=== PATIENT | female | born 2000 | race Caucasian/White ===

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

== ENCOUNTER 2018-01-01 09:32 | Emergency (ER) | payer SELFPAY ==
[2018-01-01 09:33] VITALS: BP 147/83; PULSE 81; RESP 16; TEMP 36.4; O2SAT 96; BMI 37.7
--- NOTE | 2018-01-01 10:14 | ED.VISSUMM ---
- ER Visit Summary Date of Service: 01/01/18 Chief Complaint: Cough History of Present Illness: The patient is a 17 F no senior past medical history. Status post tonsillectomy as a child. States that she has had a cough since yesterday. Green phlegm. No fever. No shortness of breath. At times she coughs or has she has vomited. No nausea no abdominal pain no diarrhea. Denies dysuria. Physical Examination: Well-appearing 88-year-old female vital signs are stable afebrile. Pulse ox 96% room air no signs of hypoxia. HEENT exam unremarkable. TMs normal. Posterior pharynx normal. Status post tonsillectomy. No redness. No exudate. No trouble swallowing or breathing. No drooling or stridor. Neck nontender no lymphadenopathy. No meningismus. Lungs clear to auscultation bilaterally. Heart regular rhythm no murmur. Abdomen soft nontender. Normal bowel sounds no peritoneal signs. Moving all 4 extremities. Neurovascularly intact. Calves nontender no edema no cords. Back exam normal. Neurologic exam normal. Test Results: None Emergency Department Course and Treatment: Patient clinically and historically has a viral URI needs no testing no antibiotics. Treatment Plan: [] Disposition: Discharge Impression: Acute viral URI This note was generated with [employer] dictation software. It may contain incorrect words, spelling, and punctuation that were not noted in review of the chart prior to signing ED Disposition - Plan for ED Patient: Chief Complaint: Cough Referrals: Kennedy Arriola DO [Primary Care Provider] -
--- NOTE | 2018-01-01 10:16 | ED.DEP ---
ED Disposition - Plan for ED Patient: Disposition: Home or Assisted Living Chief Complaint: Cough Instructions: ED URI Viral Referrals: Kennedy Arriola DO [Primary Care Provider] - 1 Week if not improving
== END 2018-01-01 10:37 | disposition home or self-care (01) ==
LOC: ED 10:25
PROVIDERS: Emergency Provider Emergency Medicine; Family Provider Family Medicine; PCP Family Medicine
DX: J06.9 Acute upper respiratory infection, unspecified (principal)
CPT/HCPCS: 99282

== ENCOUNTER 2018-03-07 07:17 | Emergency (ER) | payer SELFPAY ==
--- NOTE | 2018-03-07 07:17 | DT_ITS ---
This patient was seen during an EMR downtime March 03, 2018 - March 10, 2018. This patient may have a combination of paper and electronic documentation or all paper documentation. All documentation is viewable within the e-chart portion of [facility] for each patient visit.
[2018-03-10 15:54] LABS: Hematocrit 38.5 % (37-47); Hemoglobin 12.1 g/dl (12.0-15.0); Mean Corp Hgb Conc 31.4 g/gl (32-36); Mean Corpuscular Hgb 25.4 pg (27.0-32.0); Mean Corpuscular Volume 80.9 fL (81-99); Mean Platelet Vol. 10.6 fl (6.2-12.0); Platelet Count 337 K/mm3 (150-450); RBC Distribution Width CV 14.9 % (11.6-14.6); RBC Distribution Width SD 42.9 fl (35.1-43.9); Red Blood Count 4.76 M/mm3 (4.2-5.4); Scan Indicated on CBC? Y/N NO; White Blood Count 6.9 K/mm3 (4.4-11.0)
== END 2018-03-07 09:45 | disposition home or self-care (01) ==
LOC: ED 12:45
PROVIDERS: Emergency Provider Emergency Medicine; Family Provider Family Medicine; PCP Family Medicine
DX: R04.0 Epistaxis (principal); R42 Dizziness and giddiness; R03.0 Elevated blood-pressure reading, without diagnosis of hypertension
CPT/HCPCS: 85027; 96360; 96361; 99282

== ENCOUNTER 2018-06-12 16:14 | Emergency (ER) | payer OTHER, SELFPAY ==
[2018-06-12 16:14] VITALS: BP 154/80; PULSE 86; RESP 15; TEMP 36.8; O2SAT 96; BMI 36.2
--- NOTE | 2018-06-12 16:16 | RAD_ITS ---
STUDY: X-RAY - LEFT ANKLE REASON FOR EXAM: Female, 18 years old. Ankle pain. TECHNIQUE: 3 view(s) of the ankle. COMPARISON: None. FINDINGS: Normal visualized distal tibia and fibula. Normal medial and lateral malleoli. Normal tibiotalar articulation and ankle mortise. Normal visualized talus and calcaneus. The visualized subtalar, talonavicular, calcaneocuboid and tarsal articulations are normal. There is no demonstrated fracture. The soft tissue structures are unremarkable. RAD/Ankle min 3 Views IMPRESSION: Normal x-ray examination of the ankle. Electronically Signed: Mehdi Valle MD at 16:36 EDT , Service support ,
--- NOTE | 2018-06-12 16:43 | ED.DCSUM_ITS ---
- ER Visit Summary Date of Service: 06/12/18 Chief Complaint: Injury left ankle History of Present Illness: The patient is a 18 F who states her foot went into a hole. She presents with pain left ankle. She localizes pain laterally. She states when she was a child she tore ligaments in her ankle. She denies paresthesia, anesthesia or motor tics. She states she is able to walk. She has discomfort with walking. Physical Examination: Vital signs noted and blood pressure is elevated 154/80. There is pain palpation over the anterior talofibular ligament. There is minimal pain abrasion of the distal lateral malleolus and no pain the patient over the medial malleolus. There is no laxity with drawer testing. There is no pain the region of the base of the fifth metatarsal. DP and PT pulses are palpable. Test Results: Three-view x-ray was obtained and interpreted by me as negative for fracture, subluxation, dislocation or foreign body. Emergency Department Course and Treatment: X-ray was obtained per nursing protocol. Treatment Plan: Ice, rest and anti-inflammatories since no contraindication Disposition: Discharged home with appropriate home-going instructions Impression: Acute left ankle sprain anterior talofibular ligament This note was generated with [employer] dictation software. It may contain incorrect words, spelling, and punctuation that were not noted in review of the chart prior to signing ED Disposition - Plan for ED Patient: Disposition: Home or Assisted Living Chief Complaint: Lower Extremity Injury Instructions: ED Sprain Ankle W X Ray Referrals: Kennedy Arriola DO [Primary Care Provider] - 10-14 Days if not better Additional Instructions: Draw alphabet with your fourth 4-6 times a day. Take ibuprofen for pain.
[2018-06-12 16:48] VITALS: BP 119/79; PULSE 85; RESP 17; O2SAT 97
== END 2018-06-12 17:04 | disposition home or self-care (01) ==
LOC: ED 17:00
PROVIDERS: Emergency Provider Emergency Medicine
DX: S93.492A Sprain of other ligament of left ankle, initial encounter (principal); X58.XXXA Exposure to other specified factors, initial encounter; Y93.9 Activity, unspecified; Y92.89 Other specified places as the place of occurrence of the external cause; Y99.8 Other external cause status
CPT/HCPCS: 73610; 99282

== ENCOUNTER 2018-11-23 00:07 | Emergency (ER) | payer OTHER, SELFPAY ==
[2018-11-23 00:09] VITALS: BP 138/82; PULSE 74; RESP 16; TEMP 36.6; O2SAT 99; BMI 40.6
--- NOTE | 2018-11-23 00:46 | ED.VISSUMM ---
- ER Visit Summary Date of Service: 11/23/18 Chief Complaint: Nosebleed History of Present Illness: The patient is a 18 F who presents with a nosebleed. It has been occurring intermittently over the last 7 hours. It has all been right-sided. She does have a history of prior nosebleeds but is never needed a packing or cautery. Physical Examination: Afebrile vitals normal The patient has mild right-sided epistaxis she has some oozing from the anterior nasal septum Heart regular rate and rhythm Lungs clear Test Results: Not indicated Emergency Department Course and Treatment: Thrombin FloSeal was applied in the right nare and hemostasis achieved. Patient discharged. She was given a referral to ENT given history of frequent nosebleeds. She understands to return for new or worsening symptoms. Treatment Plan: [] Disposition: Discharge Impression: Epistaxis This note was generated with [employer] dictation software. It may contain incorrect words, spelling, and punctuation that were not noted in review of the chart prior to signing ED Disposition - Plan for ED Patient: Referrals: Care Physician,No Primary [Primary Care Provider] -
--- NOTE | 2018-11-23 00:47 | ED.DEP ---
ED Disposition - Plan for ED Patient: Instructions: Nosebleed Referrals: Care Physician,No Primary [Primary Care Provider] - Kamron Wick MD [STAFF PHYSICIAN] -
[2018-11-23 00:59] VITALS: BP 130/60; PULSE 78; RESP 18; O2SAT 96
== END 2018-11-23 00:59 | disposition home or self-care (01) ==
LOC: ED 00:44
PROVIDERS: Emergency Provider Emergency Medicine
DX: R04.0 Epistaxis (principal)
CPT/HCPCS: 99282

== ENCOUNTER 2018-11-23 12:11 | Emergency (ER) | payer OTHER, SELFPAY ==
[2018-11-23 00:09] VITALS: BMI 40.6
[2018-11-23 12:11] VITALS: BP 169/109; PULSE 77; RESP 18; TEMP 36.6; O2SAT 97; BMI 40.9
--- NOTE | 2018-11-23 12:31 | ED.VISSUMM ---
- ER Visit Summary Date of Service: 11/23/18 Chief Complaint: Right-sided nosebleed History of Present Illness: The patient is a 18 F prior history of nosebleeds. Otherwise no medical problems. No prior nasal surgeries. She is on no blood thinners. Denies any trauma. States that yesterday afternoon around 3:30 PM she started having an intermittent nosebleed. Came into the ER last night was treated with thrombin which reduced the bleeding but he continued to ooze today at times the bleeding is worse. It is only coming out of the right side of her nose. She denies any blood down the back of her throat. She denies any bruising. No hematemesis. No melena. Physical Examination: Well-appearing young female. Vital signs are stable and afebrile. HEENT exam clear rhinorrhea both sides of the nose. The right anterior Caleb box plexus on the medial septum of the nose is friable. Currently there is no active bleeding or clots. The left side is unremarkable without any blood. Posterior pharynx is normal. Nose is nontender and there is no signs of facial trauma. Lungs clear to auscultation bilaterally. Heart regular rate and rhythm no murmur. Abdomen soft nontender. Otherwise exam unremarkable. Test Results: None Emergency Department Course and Treatment: Right sided anterior epistaxis. Afrin soaked cotton balls be placed in her nose. Then I will place a right anterior Merocel nasal tampon. Treatment Plan: Nasal pack to stay in for 3 days. Amoxicillin 3 times daily for 3 days. Return if bleeding restarts and unable control. Disposition: Discharge Impression: Right anterior nosebleed Right anterior nasal pack (Merocel nasal tampon) placed by ER physician This note was generated with [employer] dictation software. It may contain incorrect words, spelling, and punctuation that were not noted in review of the chart prior to signing ED Disposition - Plan for ED Patient: Referrals: Care Physician,No Primary [Primary Care Provider] -
--- NOTE | 2018-11-23 12:33 | ED.DEP ---
ED Disposition - Plan for ED Patient: Disposition: Home or Assisted Living Instructions: Nosebleed Prescriptions: Amoxicillin 500 mg PO Q8 #9 tab Referrals: Champ Encarnacion MD [STAFF PHYSICIAN] - As Needed Additional Instructions: Amoxicillin 1 pill 3 times a day for the next 3 days. Pulled the nasal pack out in 3 days. If your nose starts to bleed heavily and you are unable to control it return to the ER.
[2018-11-23] MEDS: Oxymetazoline 0.05% 1 SPRAY SPRAY.BTL 2 SPRAY NASAL (12:42)
== END 2018-11-23 13:49 | disposition home or self-care (01) ==
LOC: ED 12:40
PROVIDERS: Emergency Provider Emergency Medicine
DX: R04.0 Epistaxis (principal)
CPT/HCPCS: 30901; 99282; A4216

== ENCOUNTER 2018-12-11 08:31 | Emergency (ER) | payer OTHER, SELFPAY ==
[2018-12-11 08:32] VITALS: BP 122/71; PULSE 89; RESP 17; TEMP 36.9; O2SAT 98; BMI 40.6
--- NOTE | 2018-12-11 08:41 | ED.VISSUMM ---
- ER Visit Summary Date of Service: 12/11/18 Chief Complaint: Spider bite History of Present Illness: The patient is a 18 F presents to the emergency department an abscess on her left thigh. The patient states she noticed that 2 days ago. She states it is gotten increasingly painful over the past 24 hours. She states she did outline it yesterday. The redness has not gone outside the outline, but she states it feels more puffy. She denies any fevers or chills. She has no history of immunosuppression. She denies any history of MRSA. She states she is never had an abscess before. Physical Examination: Exam is relatively unremarkable. Patient does have a 3 cm ovoid area of cellulitis at the proximal lateral left thigh. There is no central fluctuance. There is mild induration. There is no drainage. There is no streaking. Test Results: [] Emergency Department Course and Treatment: The patient has a localized cellulitis within early abscess. There is no central fluctuance or fluid pockets. I do not feel that incision and drainage would be of benefit at this time because the area just seems indurated without any fluctuance. I am going to place patient on antibiotics. I did risk reduction counselor her that if in 24-48 hrs. the redness is worsening, the size is increasing, or she has any other symptoms she needs to have this reevaluated. She is comfortable with this plan of care. The patient will be discharged home. Treatment Plan: [] Disposition: Discharge Impression: Left thigh cellulitis This note was generated with [employer] dictation software. It may contain incorrect words, spelling, and punctuation that were not noted in review of the chart prior to signing ED Disposition - Plan for ED Patient: Instructions: ED Staph Infec Abx Tx Only Prescriptions: Smz/Tmp Ds [Bactrim Ds] 1 tab PO BID #14 tab Referrals: Care Physician,No Primary [Primary Care Provider] -
== END 2018-12-11 08:56 | disposition home or self-care (01) ==
LOC: ED 08:54
PROVIDERS: Emergency Provider Emergency Medicine
DX: L03.116 Cellulitis of left lower limb (principal)
CPT/HCPCS: 99282

== ENCOUNTER 2019-08-30 00:40 | Emergency (ER) | payer OTHER, SELFPAY ==
[2019-08-30 00:41] VITALS: BP 127/89; PULSE 99; RESP 17; TEMP 36.4; O2SAT 96; BMI 43.9
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
[2019-08-30] MEDS: Albuterol 2.5 MG/3 ML VIAL.NEB. INHALATION (00:58)
[2019-08-30 00:59] VITALS: PULSE 99; RESP 18
[2019-08-30 02:53] VITALS: PULSE 95; RESP 15; O2SAT 98
== END 2019-08-30 03:18 | disposition home or self-care (01) ==
PROVIDERS: Emergency Provider Emergency Medicine
DX: J70.5 Respiratory conditions due to smoke inhalation (principal); T59.891A Toxic effect of other specified gases, fumes and vapors, accidental (unintentional), initial encounter; R06.02 Shortness of breath; Y92.214 College as the place of occurrence of the external cause
CPT/HCPCS: 94640; 99282

== ENCOUNTER 2020-02-05 20:08 | Emergency (ER) | payer OTHER, SELFPAY ==
[2020-02-05 20:10] VITALS: BP 139/105; PULSE 89; RESP 16; TEMP 36.6; O2SAT 97; BMI 35.2
--- NOTE | 2020-02-05 20:20 | EKG12_ITS ---
Test Reason : OCCUP EXPOSURE Blood Pressure : / mmHG Vent. Rate : 084 BPM Atrial Rate : 084 BPM P-R Int : 168 ms QRS Dur : 108 ms QT Int : 392 ms P-R-T Axes : 033 021 027 degrees QTc Int : 463 ms Normal sinus rhythm Normal ECG Confirmed by DI MACDONALD MD ([id number]), food editor CHRISTOPHER SALEH ([id number]) on 02/08/2020 3:17:19 PM Referred By: OMID Confirmed By:DI MACDONALD MD
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
[2020-02-05 20:33] VITALS: BP 138/83; PULSE 73; RESP 13; O2SAT 97
== END 2020-02-05 21:26 | disposition home or self-care (01) ==
LOC: ED 21:22
PROVIDERS: Emergency Provider Emergency Medicine
DX: T75.89XA Other specified effects of external causes, initial encounter (principal); R42 Dizziness and giddiness
CPT/HCPCS: 93005; 99283

== ENCOUNTER 2020-08-30 00:22 | Emergency (ER) | payer OTHER, SELFPAY ==
[2020-08-30 00:23] VITALS: BP 153/90; PULSE 105; RESP 18; TEMP 35.9; O2SAT 98; BMI 42.3
[2020-08-30 00:26] VITALS: BP 153/90; PULSE 106; RESP 18; TEMP 35.9; O2SAT 98
--- NOTE | 2020-08-30 00:41 | RAD_ITS ---
STUDY: X-RAY CHEST REASON FOR EXAM: Female, 20 years old. NEW COUGH AND SOB SINCE SATURDAY, TODAY C/O SORE THROAT and quot;WITH SORES and quot; TECHNIQUE: Single AP portable view of the chest. COMPARISON: None. FINDINGS: The lungs are clear and expanded. There is no demonstrated pleural abnormality. Normal size heart. Normal mediastinum and ernie. Normal visualized pulmonary arteries. Normal visualized aortic arch and descending thoracic aorta. Normal visualized thoracic spine. Normal visualized ribs, clavicles, and shoulders. There is no demonstrated abnormality of the visualized soft tissue structures of the upper abdomen. RAD/Chest 1 View (Portable) IMPRESSION: Normal x-ray examination of the chest. Electronically Signed: Angeline Esposito, at 1:55 EST Tel , Service support ,
--- NOTE | 2020-08-30 00:42 | ED.VIS.GEN ---
History of Present Illness Chief Complaint: Shortness of Breath Informant: Patient Narrative: Patient is a 20-year-old previously healthy female who presents to the emergency department for cough, shortness of breath, sore throat. She states that her initial cough and shortness of breath started 5 days ago. Sore throat and bumps on the back of her throat started earlier today. She does have a history of strep throat. States it does hurt to swallow. No known sick contacts. 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 She has had some low-grade fevers. She denies any leg swelling or calf pain. She denies any chest pain. No abdominal pain. She has not had nausea/vomiting or diarrhea. Past Medical History - Allergies and Home Meds Allergies/Adverse Reactions: Allergies No Known Allergies Allergy (Verified 08/30/20 01:37) Primary Care Physician: Care Physician,No Primary [Primary Care Provider] - Prior records reviewed: Yes Past Medical History: None Surgical History: no surgical history Smoking Status: Never smoker Review of Systems All systems negative except as indicated General: Reports: Chills. Denies: Fever, Sweats Eyes: Denies: Visual changes - bilaterally, Diplopia ENT: Reports: Sore throat. Denies: Bilateral ear pain, Rhinorrhea Cardiovascular: Denies: Chest pain, Palpitations Respiratory: Reports: Dyspnea, Cough, Sputum Gastrointestinal: Denies: Abdominal pain, Nausea, Vomiting, Diarrhea, Melena, Hematochezia Genitourinary: Denies: Dysuria, Hematuria, Frequency Musculoskeletal: Denies: Back pain, Extremity Pain Skin: Denies: Rash, Wounds Neurological: Denies: Headache, Weakness, Numbness Physical Exam Vital Signs/Narrative: Vital Signs Temp Pulse Resp BP Pulse Ox 08/30/20 00:26 96.6 F L 106 H 18 153/90 H 98 08/30/20 00:23 96.6 F L 105 H 18 153/90 H 98 Inital Vital Signs reviewed: Yes General: Well nourished, Well developed, No Acute Distress Head: Normocephalic, Atraumatic Eyes: Perrl, EOMI ENT: Moist mucous membranes, No rhinorrhea, - - Posterior throat has 7.5 cm macular erythematous lesions. No tonsillar abscess. No stridor. Uvula is midline. No voice change. Neck: Supple, Nontender, - - Has mild cervical lymphadenopathy bilateral. Cardiovascular: Regular rate, Regular rhythm, No murmurs Respiratory: No distress, CTA bilaterally, Chest nontender Abdomen: Soft, Nontender, Nondistended, Normal bowel sounds Back: Nontender, Normal Inspection Extremities: Nontender, No edema. Negative for: Calf Tenderness Skin: Normal color, No rash Neurological: Alert, Oriented x3, Normal Strength, Normal Sensation Psychological: Normal affect, Normal Mood Diagnostic/Tx/Re-eval Chest X-Ray - ED: 1 View - 1 view x-ray interpreted by myself. No evidence of consolidation. Clear lung ferris bilaterally. Normal cardiac silhouette. Agree with radiologist finding. - Medical Decision Making Patient presents to the emerge department for cough, shortness of breath and sore throat. She noticed some bumps in the back of her throat earlier today. Upon arrival to the emergency department vital signs within normal limits. She is afebrile. She is satting well on room air. Will check a strep throat test given her history as well as a coronavirus test. Will check chest x-ray given her shortness of breath and cough. Patient's x-ray did not reveal any acute cardiopulmonary abnormality. She has been satting well on room air. Strep test is negative. She does not appear in any acute distress. Recommend symptomatic treatment. I did offer treatment here in the emergency department which she declined. She does not have a PCP listed so she was made a referral for one. Patient is to self quarantine until coronavirus test results. Patient understands and is agreeable this plan. She is discharged home in stable condition. All questions answered. ED Disposition - Plan for ED Patient: Disposition: Home or Assisted Living Diagnosis: Pharyngitis, Cough, Dyspnea Instructions: ED Bronchitis, No Antibiotic (Adult), Self-Care for Sore Throats Referrals: Care Physician,No Primary [Primary Care Provider] - Kamron Barnes MD [[facility]] - 5-7 Days Additional Instructions: Chloraseptic spray or lozenge which can be obtained [id number] for the sore throat. Can also use Tylenol and ibuprofen back and forth as needed.
== END 2020-08-30 02:21 | disposition home or self-care (01) ==
PROVIDERS: Emergency Provider Emergency Medicine
DX: U07.1 COVID-19 (principal); J02.9 Acute pharyngitis, unspecified; R06.00 Dyspnea, unspecified; R05 Cough
CPT/HCPCS: 71045; 87635; 87880; 99282; U0003

== ENCOUNTER → 2020-10-27 11:30 | Outpatient (CLI) | payer OTHER, SELFPAY ==
[2020-10-27 15:28] LABS: Hepatitis B Surface Antibody Non-Reactive
[2020-10-30 07:15] LABS: Mumps Antibody,IgG < 9.0 AU/mL (Immune >10.9); Rubeola IgG Ab 36.5 AU/mL (Immune >16.4); V-Zoster IgG (Immunity) 421 index (Immune >165)
== END ==
PROVIDERS: PCP Family Medicine; Visit Provider Family Medicine
DX: Z02.0 Encounter for examination for admission to educational institution (principal)
CPT/HCPCS: 36415; 86706; 86735; 86765; 86787

== ENCOUNTER → 2021-09-27 | Outpatient (CLI) | payer MEDICARE, SELFPAY | END | disposition home or self-care (01) | LOC: LABSPEC 16:48 | PROVIDERS: PCP Family Medicine; Visit Provider Family Medicine | DX: Z20.828 Contact with and (suspected) exposure to other viral communicable diseases (principal) | CPT/HCPCS: 87635; U0005; U0003 ==

== ENCOUNTER 2022-01-17 09:42 | Emergency (ER) | payer OTHER, BC, SELFPAY ==
[2022-01-17 09:44] VITALS: BP 149/88; PULSE 72; RESP 17; TEMP 35.6; O2SAT 97; BMI 42.8
--- NOTE | 2022-01-17 10:18 | EDS_ITS ---
HPI History of Present Illness Chief Complaint: Back Informant: patient Onset/Context/Timing Onset: Weeks Context: Sudden Onset Injury: lifting and twisting Timing: Continuous Quality: Sharp Location: Thoracic Current Severity: Mild Maximum Severity: Moderate Worsened by: improves with Movement, Bending and Lifting Relieved by: Remaining Still Associated Symptoms Associated Symptoms: Negative for Numbness, Tingling, Radiation to Right Leg, Radiation to Left Leg, Fever, Abdominal Pain, Dysuria, Unable to Ambulate, Unable to Transfer, Urinary Retention, Urinary Incontinence, Constipation and Fecal Incontinence Narrative Narrative: 21-year-old female 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 Says she was lifting parts and twisting and felt pain in her right mid back just lateral to the spine. Since that time has had pain last 2 weeks worse with movement. Denies any weakness or numbness to her upper or lower extremities. No prior back history of back surgery. This is a workers comp claim. Prior similar symptoms: No Recent Illness/Hospitalization: No PFSH PFSH Medical History no medical history no medical history Home Medications Control 1 tab PO/SL DAILY 01/17/22 [History Last Taken Unknown] metaxalone [Skelaxin] 800 mg PO TID #21 tab 01/17/22 [Rx Last Taken Unknown] Allergy/AdvReac Type Severity Reaction Status Date / Time No Known Allergies Allergy Verified 01/17/22 09:42 Surgical History History of tonsillectomy Social History Smoking Status: Never smoker ROS ROS ED ROS Narrative Denies recent illness. Review of Systems ROS Unobtainable: Denies due to encephalopathy Constitutional Constitutional ED: Denies fever(s) Eyes Eyes: Denies change in vision ENT ENT ED: Denies ear pain Cardiovascular Cardiovascular: Denies chest pain Respiratory/Chest Respiratory/Chest: Denies dyspnea or sputum Gastrointestinal Gastrointestinal: Denies abdominal pain, diarrhea, nausea or vomiting Genitourinary Genitourinary ED: Denies dysuria Musculoskeletal Musculoskeletal: Denies myalgias Integumentary Denies rash Neurologic Neurologic: Denies headache(s) Psychiatric Psychiatric: Denies depression Endocrine Endocrinology: Denies polyuria Hematologic/Lymphatic Hematologic/Lymphatic: Denies easy bruising Allergic/Immunologic Allergic/Immunologic ED: Denies urticaria EXAM Physical Exam Narrative Exam Narrative: 21-year-old female no acute distress vital signs stable afebrile. HEENT, neck, heart, lung abdominal exam are normal. Upper and lower extremities have full range of motion with normal motor strength and sensation. No cauda equina. Back spine nontender. Perithoracic lower paraspinal musculature soft tissue tenderness and muscle spasm. Tenderness to palpation. No discoloration. No redness or warmth. No bruising. Otherwise back exam normal. Neurologic exam normal. Const Vital Signs: 01/17/22 09:44 Temperature 96.1 F L Temperature Source Oral Pulse Rate 72 Respiratory Rate 17 Blood Pressure 149/88 H Blood Pressure Mean 108 Pulse Ox 97 Oxygen Delivery Method Room Air Positive well nourished, well developed and obese; Negative for cachectic, contr actures or unkempt General Appearance ED: well developed and NAD; Negative for unkempt, cachectic, contractures or pallor Nutritional Appearance: obese; Negative for cachectic HEENT Reports moist mucous membranes Negative for trauma or tenderness Eyes PERRL and EOMs intact bilaterally General Eye ED: Negative for pale conjunctiva or scleral icterus Neck no lymphadenopathy, supple and no JVD General: Negative for tenderness Resp normal respiratory effort Effort and Inspection: Negative for pain with movement or other Auscultation: Negative for rales or rhonchi Cardio regular rate, regular rhythm, S1 normal heart sound, S2 normal heart sound and no murmurs GI normal to inspection, nondistended, normoactive bowel sounds, soft to palpation, non-tender, non-distended and no masses Inspection: Negative for abdominal distention Auscultation: Negative for hyperactive bowel sounds Palpation: Negative for tender, guarding or rebound tenderness present Back/Spine no thoracic nor lumbar tenderness; Negative for normal to inspection General Back: Negative for CVA tenderness or scar(s) Cervical Spine: Negative for cervical spine tenderness and Negative for paracervical muscle tenderness Thoracic Spine / Upper Back: paraspinal muscle tenderness Lumbar Spine / Lower Back: straight leg raise negative bilaterally Extremity normal to inspection General Extremety ED: Negative for edema or tenderness General Extremity: Negative for edema Neuro oriented x3 Sensorium / Orientation: alert; Negative for confused, lethargic or stuporous Motor Exam: strength 5/5 throughout Psych mental status grossly normal Appearance: Negative for unkempt Attitude: No agitated Mood & Affect: Negative for depressed or tearful Skin no rashes or lesions noted and no wounds General Skin Exam: Negative for jaundice or pallor Rashes: No rashes noted MDM MDM MDM Narrative Medical decision making narrative: 21-year-old with work-related back strain w ith parathoracic muscle spasm. Hot shower warm bath. Massage. Skelaxin as a muscle relaxant. Motrin for pain and inflammation. Discharge Plan Triage Chief Complaint: Back ED Provider: Eduardo Johnson Dx/Rx/DC Orders Clinical Impression: Back strain, Back muscle spasm, Encounter related to worker's compensation claim Instructions: ED Back Spasm, No Trauma, ED Back Sprain/Strain Prescriptions: New metaxalone [Skelaxin] 800 mg tablet 800 mg PO TID Qty: 21 RF: 0 No Action Control 1 tab PO/SL DAILY RF: 0 Primary Care Provider: Heather Machuca Referrals: Heather Machuca MD [Primary Care Provider] - 1 Week if not improving Activity Restrictions/Additional Instructions: You strained the muscles in the midportion of your back. You have muscle spasms. Hot shower, warm bath and whirlpool tub. Massage. Motrin for pain and inflammation. Skelaxin as a muscle relaxant 1 pill 3 times a day for a week. Follow-up with your doctor if not improving. Disposition Disposition: Home, Self Care
--- NOTE | 2022-01-17 10:33 | ED.RN ---
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 Pt. instructed to follow up with corporate care if a drug test is needed.
== END 2022-01-17 10:46 | disposition home or self-care (01) ==
LOC: ED 10:29
PROVIDERS: Emergency Provider Emergency Medicine; PCP Family Medicine; Visit Provider Emergency Medicine
DX: S39.012A Strain of muscle, fascia and tendon of lower back, initial encounter (principal); Z68.42 Body mass index [BMI] 45.0-49.9, adult; M62.830 Muscle spasm of back; X50.1XXA Overexertion from prolonged static or awkward postures, initial encounter; E66.9 Obesity, unspecified; Y99.0 Civilian activity done for income or pay
CPT/HCPCS: 99282

== ENCOUNTER → 2022-05-14 | Outpatient (CLI) | payer BC, SELFPAY ==
[2022-05-14 14:03] LABS: Hemoglobin A1c 5.9 % (3.8-5.6)
[2022-05-14 14:05] LABS: Anion Gap 6 (5-15); BUN 11 mg/dL (7-18); BUN/Creat Ratio 17.9 RATIO (10-20); Calcium,Total 8.9 mg/dL (8.5-10.1); Chloride 111 mmol/L (98-107); Creatinine, Serum 0.62 mg/dL (0.55-1.02); EST Glomerular Filtration Rate 127 mL/min (>60); Est Glom Filt Rate - Afr Amer 153 mL/min (>60); Glucose 95 mg/dL (74-106); Potassium 4.1 mmol/L (3.5-5.1); Sodium Level 140 mmol/L (136-145); Thyroid Stim Hormone (TSH) 2.17 uIU/mL (0.358-3.74)
== END | disposition home or self-care (01) ==
LOC: LAB 13:14
PROVIDERS: PCP Family Medicine; Referring Provider Family Medicine; Visit Provider Family Medicine
DX: R53.83 Other fatigue (principal); Z83.3 Family history of diabetes mellitus
CPT/HCPCS: 36415; 80048; 83036; 84443

== ENCOUNTER → 2023-09-26 | Outpatient (CLI) | payer BC, SELFPAY ==
--- OUTSIDE RECORDS SUMMARY | 2023-09-26 16:27 | XMS RPT_ITS | CCD ---
Author Name Unknown Address [address] [place] [address] Organization [facility] Care Team Providers Care Polisher [employer] Name Role Phone ARTEMIO ROCHE DO Admitting Unavailable ARTEMIO ROCHE DO Attending Unavailable ARTEMIO ROCHE DO Primary Care Unavailable Results Test Name Value Interpretation Reference Range Facil ity Encounters Encounter Date Encounter Type Care Provider Facility Start: 06-04-2019 End: 06-04-2019 Emergency department patient visit ARTEMIO HIDALGO [facility] Procedures Date Procedure Procedure Detail Performing Clinician Start: 06-04-2019 Urinalysis ARTEMIO BRADFORD Payers Date Payer Category Payer Unknown [id number] Private Health Insurance [id number] Summary Purpose Family History No Family History Records Found Advance Directives No Advanced Directives Records Found Additional Source Comments INFORMATION SOURCE (unrecogn ized section and content) FOR RECORDS PERTAINING TO PATIENTS WHO ARE OR HAVE BEEN ENROLLED IN A CHEMICAL DEPENDENCY/SUBSTANCEABUSE PROGRAM, SOME INFORMATION MAY BE OMITTED. This clinical summary was aggregated from multiple sources. Caution should be exercised in using it in the provision of clinical care. This summary normalizes information from multiple sources, and as a consequence, information in this document may materially change the coding, format and clinical context of patient data. In addition, data may be omitted in some cases. CLINICAL DECISIONS SHOULD BE BASED ON THE PRIMARY CLINICAL RECORDS. [employer] provides no warranty or guarantee of the accuracy or completeness of information in this document.
== END | disposition home or self-care (01) ==
LOC: LABSPEC 16:21
PROVIDERS: PCP Family Medicine; Visit Provider Family Medicine
DX: Z20.828 Contact with and (suspected) exposure to other viral communicable diseases (principal)
CPT/HCPCS: 87635

== ENCOUNTER 2024-08-12 12:03 | Emergency (ER) | payer BC, SELFPAY ==
[2024-08-12 12:04] VITALS: BP 185/102; PULSE 85; RESP 18; TEMP 36.2; O2SAT 97; BMI 46.3
[2024-08-12 12:48] LABS: Absolute Lymphocyte Count 2.41 X10^3/uL (0.83-4.51); Absolute Neutrophil Count 6.1 X10^3/uL (2.0-7.7); Basophil# 0.05 X10^3/uL; Basophil% 0.5 % (0-1); Eosinophil# 0.13 X10^3/uL; Eosinophils% 1.4 % (0-5); Hematocrit 42.7 % (37-47); Hemoglobin 13.8 g/dL (12.0-15.0); Lymphocyte # 2.41 X10^3/ul (0.83-4.51); Mean Corp Hgb Conc 32.3 g/dL (32-36); Mean Corpuscular Hgb 25.9 pg (27.0-32.0); Mean Corpuscular Volume 80.3 fL (81-99); Mean Platelet Vol. 10.6 fl (6.2-12.0); Monocyte# 0.48 X10^3/uL; Monocyte% 5.2 % (0-10); NRBC Flagged by Analyzer 0 % (0-5); Neutrophil # 6.13 X10^3/uL (2.7-7.7); Platelet Count 381 K/mm3 (150-450); RBC Distribution Width CV 14.5 % (11.6-14.6); RBC Distribution Width SD 41.5 fl (35.1-43.9); Red Blood Count 5.32 M/mm3 (4.2-5.4); White Blood Count 9.3 K/mm3 (4.4-11.0)
[2024-08-12] MEDS: 0.9% Normal Saline (1000mL) 1,000 ML 999 ML IV (12:54)
--- NOTE | 2024-08-12 12:54 | EDS_ITS ---
HPI HPI - Female History of Present Illness Chief Complaint: Vag Bleeding Detail of Chief Complaint: Vaginal bleeding Narrative Narrative: Patient presents with vaginal bleeding that started initially 5 days ago but heavy over the last 3 days. She she states that she is passing golf ball size clots and going through a tampon an hour for several days. She complains of feeling lightheaded and dizzy. She called her PODIATRIST ASSISTANT who told her to come into the ER and get evaluated. Her last menstrual period was a month ago. She has had no prior pregnancies. She does describe some abdominal cramping. She denies any trauma to her vagina. Patient also complains of a headache that she has had today for about an hour. Headache typical of her migraines. Complains of some discomfort into her right eye. Denies nausea or vomiting. She does describe some lightheadedness. Headache is typical of her migraines. PFSH PFSH Home Medications ?Medication ?Instructions ?Recorded ?Last Taken ?Type Control 1 tab PO/SL DAILY 01/17/22 Unknown History metaxalone 800 mg tablet (Skelaxin) 800 mg PO TID #21 tabs 01/17/22 Unknown Rx Allergy/AdvReac Type Severity Reaction Status Date / Time No Known Allergies Allergy Verified 08/12/24 12:04 Surgical History History of tonsillectomy Social History Smoking Status: Never smoker ROS ROS ED Review of Systems ROS Unobtainable: other Constitutional Constitutional ED: Reports lethargy; Denies chills, fever(s), sweats or weight loss Eyes Eyes: Denies blurry vision, change in vision or diplopia ENT ENT ED: Denies rhinorrhea or sore throat Cardiovascular Cardiovascular: Reports chest pain and racing heartbeat; Denies orthopnea Respiratory/Chest Respiratory/Chest: Reports dyspnea and dyspnea on exertion; Denies cough, orthopnea or sputum Gastrointestinal Gastrointestinal: Denies abdominal pain, diarrhea, nausea or vomiting Genitourinary Genitourinary ED: Reports other Details: Vaginal bleeding ; Denies dysuria, hematuria or urinary frequency Musculoskeletal Musculoskeletal: Denies arthralgias, back pain, myalgias or neck pain Integumentary Denies abscess, Abrasions or rash Neurologic Neurologic: Denies headache(s) or weakness Psychiatric Psychiatric: Denies anxiety, depression or suicidal thoughts Endocrine Endocrinology: Denies polydipsia, polyphagia or polyuria Hematologic/Lymphatic Hematologic/Lymphatic: Denies easy bleeding, easy bruising or lymphadenopathy Allergic/Immunologic Allergic/Immunologic ED: Denies mouth swelling, tongue swelling or urticaria EXAM Physical Exam Const Vital Signs: 08/12/24 12:04 08/12/24 13:23 Temperature 97.2 F L Temperature Source Temporal Pulse Rate 85 Pulse Rate [Lying] 78 Pulse Rate [Sitting (for 1 minute prior to obtaining)] 84 Pulse Rate [Standing (for 1 minute prior to obtaining)] 92 Respiratory Rate 18 Blood Pressure 185/102 H Blood Pressure [Lying] 154/96 H Blood Pressure [Sitting (for 1 minute prior to obtaining)] 148/103 H Blood Pressure [Standing (for 1 minute prior to obtaining)] 150/110 H Blood Pressure Mean 129 Blood Pressure Mean [Lying] 115 Blood Pressure Mean [Sitting (for 1 minute prior to obtaining)] 118 Blood Pressure Mean [Standing (for 1 minute prior to obtaining)] 123 Pulse Ox 97 Oxygen Delivery Method Room Air Positive well nourished and well developed General Appearance ED: well developed and NAD HEENT Reports TM's clear and moist mucous membranes normocephalic and atraumatic; Negative for trauma or tenderness Tympanic Membrane ED: Yes TM's clear Eyes PERRL and EOMs intact bilaterally General Eye ED: Negative for pale conjunctiva or scleral icterus Neck no lymphadenopathy, supple and no JVD General: Negative for tenderness Chest Wall inspection of chest normal and palpation of chest normal Chest: Negative for tenderness Resp normal respiratory effort and clear to auscultation bilaterally Effort and Inspection: Negative for respiratory distress or pain with movement Auscultation: Negative for rhonchi, wheezes or diminished lung sounds Cardio regular rate, regular rhythm, S1 normal heart sound, S2 normal heart sound and no murmurs Peripheral Pulses: pulses 2+ throughout GI normal to inspection, nondistended, normoactive bowel sounds, soft to palpation, non-tender, non-distended and no masses Narrative: Pelvic exam performed with speculum and there was minimal blood in the vaginal vault. I did have to remove her tampon before doing the exam and the tampon was mostly dry. There were no clots. No vaginal wall lacerations or other abnormalities Back/Spine no CVA tenderness and no thoracic nor lumbar tenderness Extremity normal to inspection General Extremety ED: Negative for edema General Extremity: Negative for edema Neuro oriented x3, CN's II-XII intact bilaterally, no sensory deficits noted and gait normal Sensorium / Orientation: awake, alert, oriented to person, oriented to place and oriented to time Motor Exam: strength 5/5 throughout and strength abnormal Psych mental status grossly normal Skin no rashes or lesions noted and no wounds MDM MDM MDM Narrative Medical decision making narrative: Patient presents with vaginal bleeding and also migraine. She states she st arted her period 5 days ago and has had heavy bleeding with clots for 3 days. CBC with differential obtained showed a white count of 9.3 with hemoglobin 13.8 and platelet count of 381. hCG was negative. Orthostatic vital signs were negative. I offered to treat her migraine however she states your sumatriptan at home and does not want to have anything here. She thinks her dizziness is likely related to the migraine that she has. Clinically she looks well and I feel she can be safely discharged to home. She will follow-up with her PODIATRIST ASSISTANT if the bleeding persists. Patient also advised she may return back to the emergency department if persistent heavy bleeding and going through more than a pad an hour for 4 consecutive hours or symptoms of weakness or pallor or lightheadedness. Lab Data Attestation: I reviewed the patient's lab results. Labs: Laboratory Results - last 24 hr 08/12/24 12:29 WBC 9.3 RBC 5.32 Hgb 13.8 Hct 42.7 MCV 80.3 L MCH 25.9 L MCHC 32.3 RDW Std Deviation 41.5 RDW Coeff of Janet 14.5 Plt Count 381 MPV 10.6 Immature Gran % (Auto) 0.900 Neut % (Auto) 66.0 Lymph % (Auto) 26.0 [place] % (Auto) 5.2 Eos % (Auto) 1.4 Baso % (Auto) 0.5 Absolute Neuts (auto) 6.1 Absolute Lymphs (auto) 2.41 Nucleated RBC % 0 Serum , Qual NEGATIVE Discharge Plan Triage Chief Complaint: Vag Bleeding ED Provider: Rahul Lara Dx/Rx/DC Orders Clinical Impression: DUB (dysfunctional uterine bleeding), Headache, migraine Instructions: ED Dysfunctional Uterine Bleeding, ED, Migraine (Classical) Prescriptions: No Action Control 1 tab PO/SL DAILY metaxalone [Skelaxin] 800 mg tablet 800 mg PO TID Qty: 21 0RF Primary Care Provider: Care Physician,No Primary Referrals: Care Physician,No Primary [Primary Care Provider] - Activity Restrictions/Additional Instructions: Follow-up with your PODIATRIST ASSISTANT if persistent heavy bleeding or condition should worsen. Print Language: Georgian Disposition Disposition: Home, Self Care
[2024-08-12 13:09] LABS: Internal QC Validated? YES +Cl - CLEAR BKGD; Pregnancy, Serum, hCG Quali. NEGATIVE Negative
[2024-08-12 13:23] VITALS: BP 148/103; BP 150/110; BP 154/96; PULSE 78; PULSE 84; PULSE 92
[2024-08-12 13:28] VITALS: BP 150/95; PULSE 85; RESP 16; TEMP 36.6; O2SAT 99
== END 2024-08-12 13:33 | disposition home or self-care (01) ==
PROVIDERS: Emergency Provider Emergency Medicine; Referring Provider Emergency Medicine; Visit Provider Emergency Medicine
DX: N93.8 Other specified abnormal uterine and vaginal bleeding (principal); G43.909 Migraine, unspecified, not intractable, without status migrainosus
CPT/HCPCS: 84703; 85025; 86850; 86900; 86901; 96360; 99284; J7030; A4216